=== PATIENT | male | born 1995 | race Caucasian/White ===

== ENCOUNTER 2017-11-25 10:59 | Emergency (ER) | payer OTHER ==
--- NOTE | 2017-11-25 11:57 | EDM.PDOC ---
ED HPI GENERAL MEDICAL PROBLEM - General Chief Complaint: Lower Extremity Injury/Pain Stated Complaint: LT FOOT INJURY Time Seen by Provider: 11/25/17 11:25 Source of Information: Reports: Patient, RN Notes Reviewed - History of Present Illness INITIAL COMMENTS - FREE TEXT/NARRATIVE: 22 year old male injured L foot yesterday, jumped off of trailer yesterday at work, sudden onset of Pain L lateral foot, continued pain with wt bearing. On his feet a lot with work, no other pain or injury. Left Feet Pain Score (Numeric/FACES): 8 - Related Data Allergies Allergy/AdvReac Type Severity Reaction Status Date / Time No Known Allergies Allergy Verified 11/25/17 11:23 Home Meds: Home Meds . [No Known Home Meds] 11/25/17 [History] Past Medical History - Past Health History Medical/Surgical History: Denies Medical/Surgical History Social & Family History - Tobacco Use Smoking Status *Q: Current Every Day Smoker Years of Tobacco use: 2 Packs/Tins Daily: 2 - Caffeine Use Caffeine Use: Reports: Soda - Recreational Drug Use Recreational Drug Use: No Review of Systems - Review of Systems Review Of Systems: See Below Mouth/Throat: Reports: No Symptoms Respiratory: Denies: Shortness of Breath Cardiovascular: Denies: Chest Pain GI/Abdominal: Denies: Nausea, Vomiting Musculoskeletal: Reports: Foot Pain (L lateral foot, worse with wt bearing) Skin: Denies: Bruising Neurological: Denies: Numbness, Tingling ED EXAM, GENERAL - Physical Exam Exam: See Below General Appearance: Alert, No Apparent Distress Head: Atraumatic Respiratory/Chest: No Respiratory Distress Extremities: Other (tenderness L lateral mid foot, very minimal swelling just below L ankle, ankle nontender). No: Joint Swelling Neurological: Alert, Oriented, No Motor/Sensory Deficits Course - Vital Signs Last Recorded V/S: Last Vital Signs Temp 97.3 F 11/25/17 11:27 Pulse 84 11/25/17 11:27 Resp 20 11/25/17 11:27 BP 132/96 H 11/25/17 11:27 Pulse Ox 100 11/25/17 11:27 - Orders/Labs/Meds Orders: Active Orders 24 hr Category Date Time Status Foot Comp Min 3V Lt [CR] Stat Exams 11/25/17 11:30 Taken - Re-Assessments/Exams Free Text/Narrative Re-Assessment/Exam: 11/25/17 12:01 no fx Departure - Departure Time of Disposition: 11:55 Disposition: Home, Self-Care 01 Condition: Fair Clinical Impression: Contusion of foot, left Qualifiers: Encounter type: initial encounter Qualified Code(s): S90.32XA - Contusion of left foot, initial encounter - Discharge Information Instructions: Foot Contusion, [id number] Referrals: PCP,None [Primary Care Provider] - Forms: ED Department Discharge, ED Return to Work/School Form Additional Instructions: rest and elevate foot as much as possible, ice packs if needed for swelling. You may alternate tylenol and ibuprofen as needed for discomfort. Off work today and tomorrow to give this some healing time. Follow up clinic if not much better within 5 to 7 days as expected. Avoid further injury. - My Orders Last 24 Hours: My Active Orders 11/25/17 11:30 Foot Comp Min 3V Lt [CR] Stat - Assessment/Plan Last 24 Hours: My Active Orders 11/25/17 11:30 Foot Comp Min 3V Lt [CR] Stat
--- NOTE | 2017-11-26 08:00 | CR ---
Left foot: Three views of the left foot were obtained. Comparison: No prior left foot exam. Joint spaces are maintained. No fracture, dislocation or other bony abnormality is seen. Impression: 1. No abnormality is identified on left foot exam. Diagnostic code #1
== END 2017-11-25 12:05 | disposition home or self-care (01) ==
LOC: JD.ED 10:59
DX: S90.32XA Contusion of left foot, initial encounter (principal); F17.210 Nicotine dependence, cigarettes, uncomplicated; W17.89XA Other fall from one level to another, initial encounter; Y92.89 Other specified places as the place of occurrence of the external cause; Y99.0 Civilian activity done for income or pay
CPT/HCPCS: 73630-26-LT; 73630-LT; 99283